=== PATIENT | male | born 1940 | race Caucasian/White ===

== ENCOUNTER 2017-07-24 06:34 | Day surgery (SDC) | payer MEDICARE ==
[~2017-07-24] VITALS: Ht 177.8 cm; Wt 107.0 kg
[~2017-07-24 06:34] MED LIST: ALBU90OI INH; ASPI325 PO; ASPI325EC; ATOR20 PO; Antivert25 MG PO; CARV3.125 PO; CHOL10002 PO; CHRO200 PO; Coreg12.5 MG PO; FURO40 PO; GLIP5 PO; HYDACE5; HYDR1TAB94 PO; Humalog100 UNIT/1 SC; Hydrocodone-Ap1 EA23; INSUASPI; INSULANI; INSULANI SC; INSULANPEN SC; ISOMON30; LISI5 PO; Lipitor20 MG PO; METF500 PO; METO100ER; OLME20 PO; ROSI4; ROSU10TA PO; SIMV20; SPIHYD; TIOT18 INH; TRAM50 PO; VITAMIN D35000 UNI1 PO
== END 2017-07-24 12:45 | disposition home or self-care (01) ==
LOC: MHTC 06:34
PROC: B213YZZ Fluoroscopy of Multiple Coronary Artery Bypass Grafts using Other Contrast (ICD-10-PCS; principal; 2017-07-24)
PROC: B211YZZ Fluoroscopy of Multiple Coronary Arteries using Other Contrast (ICD-10-PCS; principal; 2017-07-24)
DX: I25.118 Atherosclerotic heart disease of native coronary artery with other forms of angina pectoris (principal); E66.9 Obesity, unspecified; E78.00 Pure hypercholesterolemia, unspecified; I10 Essential (primary) hypertension; Z82.49 Family history of ischemic heart disease and other diseases of the circulatory system; E11.9 Type 2 diabetes mellitus without complications; Z79.4 Long term (current) use of insulin; E78.5 Hyperlipidemia, unspecified
CPT/HCPCS: 82947; 93455; 99152; 99153; C1769; C1894; J1644; J2250; J3010; J7030; Q9967

== ENCOUNTER 2017-08-02 06:24 | Day surgery (SDC) | payer MEDICARE ==
[~2017-08-02] VITALS: Ht 180.3 cm; Wt 109.3 kg
[2017-08-02] MEDS ORDERED: CLOP75 PO (13:32)
[2017-08-02] MEDS ORDERED: Lo-Dose Aspirin81 MG PO (13:33)
[2017-08-03 05:21] LABS: Bun/Creatinine Ratio 24.8 (12.0-20.0); Calcium, Blood 8.1 mg/dL (8.5-10.1); Creatinine, Blood 1.57 mg/dL (0.60-1.20); Potassium, Blood 5.1 mmol/L (3.5-5.5)
== END 2017-08-03 12:01 | disposition home or self-care (01) ==
LOC: MHTC 06:24 → PCU 11:48 → MHTC 08-03 12:01
PROVIDERS: Internal Medicine Interventional Cardiology
PROC: 027034Z Dilation of Coronary Artery, One Artery with Drug-eluting Intraluminal Device, Percutaneous Approach (ICD-10-PCS; principal; 2017-08-02)
PROC: B240ZZ3 Ultrasonography of Single Coronary Artery, Intravascular (ICD-10-PCS; principal; 2017-08-02)
DX: I25.10 Atherosclerotic heart disease of native coronary artery without angina pectoris (principal); I11.0 Hypertensive heart disease with heart failure; I50.1 Left ventricular failure, unspecified; E78.00 Pure hypercholesterolemia, unspecified; E11.9 Type 2 diabetes mellitus without complications; Z79.82 Long term (current) use of aspirin; Z79.4 Long term (current) use of insulin; Z79.84 Long term (current) use of oral hypoglycemic drugs; Z88.8 Allergy status to other drugs, medicaments and biological substances; Z95.1 Presence of aortocoronary bypass graft; Z86.73 Personal history of transient ischemic attack (TIA), and cerebral infarction without residual deficits; Z91.19 Patient's noncompliance with other medical treatment and regimen
CPT/HCPCS: 36415; 80048; 82947; 85347; 92978; 93005; 93010; 93455; 99152; 99153; C1725; C1753; C1769; C1874; C1887; C9600; J1644; J1815; J2250; J2720; J3010; J7030; Q9967

== ENCOUNTER 2018-12-26 09:23 | Emergency (ER) | payer MEDICARE ==
[~2018-12-26] VITALS: Ht 177.8 cm; Wt 90.7 kg
[~2018-12-26 09:23] MED LIST changes: +CLOP75 PO; +Lo-Dose Aspirin81 MG PO
[2018-12-26] MEDS ORDERED: CARV6.25 PO (09:42)
[2018-12-26] MEDS ORDERED: Aspirin EC81 MG (09:42)
[2018-12-26] MEDS ORDERED: ATOR20 PO (09:42)
[2018-12-26] MEDS ORDERED: FURO40 PO (09:43)
[2018-12-26] MEDS ORDERED: METF500 (09:43)
[2018-12-26] MEDS ORDERED: CLOP75 PO (09:43)
[2018-12-26] MEDS ORDERED: Norco 5-325 Ta1 EACH (09:44)
[2018-12-26] MEDS ORDERED: INSULANPEN (09:44)
[2018-12-26] MEDS ORDERED: TIOT18 INH (09:44)
[2018-12-26] MEDS ORDERED: Humalog100 UNIT/1 (09:44)
[2018-12-26 10:05] LABS: BASOPHILS ABSOLUTE AUTO 0.08 K/mm3 (0.00-0.23); BASOPHILS PERCENT AUTO 1 % (0-2); EOSINOPHILS ABSOLUTE AUTO 0.38 K/mm3 (0.00-0.68); EOSINOPHILS PERCENT AUTO 5 % (0-6); Hematocrit 37.7 % (37.0-53.0); Hemoglobin 11.5 g/dL (13.5-17.5); IMMATURE GRAN ABSOLUTE AUTO 0.05 K/mm3 (0.00-0.10); IMMATURE GRAN PERCENT AUTO 1 % (0-1); LYMPHOCYTES ABSOLUTE AUTO 1.61 K/mm3 (0.84-5.20); LYMPHOCYTES PERCENT AUTO 21 % (21-46); MONOCYTES ABSOLUTE AUTO 0.93 K/mm3 (0.16-1.47); MONOCYTES PERCENT AUTO 12 % (4-13); Mean Corpuscular HGB 28.5 pg (26.0-34.0); Mean Corpuscular HGB Conc 30.5 g/dL (31.5-36.5); Mean Corpuscular Volume 93 fL (80-100); Mean Platelet Volume 9.9 fL (9.1-12.4); NEUTROPHILS ABSOLUTE AUTO 4.65 K/mm3 (1.96-9.15); NEUTROPHILS PERCENT AUTO 61 % (41-73); Platelet Count 195 K/mm3 (150-400); RDW Coefficient Variation 14.3 % (11.7-14.2); RDW Standard Deviation 49.4 fL (35.1-46.3); Red Blood Cell Count 4.04 M/mm3 (4.30-5.90)
[2018-12-26 10:24] LABS: Alanine Aminotransfer (ALT/SGP 27 U/L (12-78); Albumin/Globulin Ratio 0.8 (0.8-1.8); Alk Phos 122 U/L (50-136); Anion Gap 6 mmol/L (6-16); Aspartate Aminotrans (AST/SGOT 25 U/L (12-37); Bilirubin, Total 0.5 mg/dL (0.1-1.0); Blood Urea Nitrogen 26 mg/dL (8-24); Bun/Creatinine Ratio 16.4 (12.0-20.0); CO2, Blood 24 mmol/L (21-32); Calcium, Blood 8.3 mg/dL (8.5-10.1); Chloride, Blood 110 mmol/L (98-108); Creatinine, Blood 1.59 mg/dL (0.60-1.20); Globulin, Blood 3.7 g/dL (2.2-4.0); Glomerular Filtration Rate 45 (60-); Glucose, Blood 170 mg/dL (70-99); Potassium, Blood 4.7 mmol/L (3.5-5.5); Sodium, Blood 140 mmol/L (136-145); Total Protein, Blood 6.7 g/dL (6.4-8.2); Troponin I <0.015 ng/mL (0.000-0.040)
[2018-12-26 10:42] LABS: Source, Urine Clean Catch
[2018-12-26 10:52] LABS: Bilirubin, Urine Neg (Neg); Blood, Urine Neg (Neg); Glucose Qualitative, Urine 2+ (Neg); Ketones, Urine Neg (Neg); Leukocyte Esterase, Urine Neg (Neg); Nitrite, Urine Neg (Neg); Protein, Urine Neg (Neg); Specific Gravity, Urine 1.005 (1.003-1.022); Urobilinogen, Urine NORM (Normal)
[2018-12-26 10:53] LABS: Appearance, Urine Clear (Clear); Color, Urine Yellow (P-Yellow)
== END 2018-12-26 12:35 | disposition home or self-care (01) ==
LOC: ER 09:23
PROVIDERS: Physician Assistant
DX: E86.0 Dehydration (principal); Z88.8 Allergy status to other drugs, medicaments and biological substances; Z79.899 Other long term (current) drug therapy; Z79.82 Long term (current) use of aspirin; Z79.4 Long term (current) use of insulin; I10 Essential (primary) hypertension; E78.5 Hyperlipidemia, unspecified; E11.9 Type 2 diabetes mellitus without complications
CPT/HCPCS: 36415; 70450; 71046; 80053; 81003; 84484; 85025; 93005; 93010; 99285-25

== ENCOUNTER 2020-08-07 18:42 | Emergency (ER) | payer MEDICARE ==
[~2020-08-07] VITALS: Ht 177.8 cm; Wt 102.1 kg
[~2020-08-07 18:42] MED LIST changes: +Aspirin EC81 MG; +CARV6.25 PO; +Humalog100 UNIT/1; +INSULANPEN; +METF500; +Norco 5-325 Ta1 EACH
== END 2020-08-07 20:42 | disposition home or self-care (01) ==
LOC: ER 18:42
DX: S46.911A Strain of unspecified muscle, fascia and tendon at shoulder and upper arm level, right arm, initial encounter (principal); S00.83XA Contusion of other part of head, initial encounter; I10 Essential (primary) hypertension; E78.5 Hyperlipidemia, unspecified; Z23 Encounter for immunization; Z88.8 Allergy status to other drugs, medicaments and biological substances; Z79.02 Long term (current) use of antithrombotics/antiplatelets; Z79.899 Other long term (current) drug therapy; Z79.4 Long term (current) use of insulin; W01.0XXA Fall on same level from slipping, tripping and stumbling without subsequent striking against object, initial encounter
CPT/HCPCS: 70450; 73030; 90471; 90714; 99284-25

== ENCOUNTER → 2020-08-13 | Outpatient (CLI) | payer MEDICARE ==
[2020-08-13 12:09] LABS: Microalbumin, Urine Quant. 13.4 mg/L (0.000-20.000)
== END | disposition home or self-care (01) ==
LOC: LAB SHORT 08:00 → PLD 08:00
PROVIDERS: Internal Medicine Nephrology
DX: N18.30 Chronic kidney disease, stage 3 unspecified (principal); D63.1 Anemia in chronic kidney disease; N25.81 Secondary hyperparathyroidism of renal origin; E55.9 Vitamin D deficiency, unspecified; E78.00 Pure hypercholesterolemia, unspecified; D51.8 Other vitamin B12 deficiency anemias; D52.8 Other folate deficiency anemias; D50.9 Iron deficiency anemia, unspecified; R76.9 Abnormal immunological finding in serum, unspecified; R94.5 Abnormal results of liver function studies; R94.6 Abnormal results of thyroid function studies
CPT/HCPCS: 81050; 82043; 84156; 84300

== ENCOUNTER → 2021-02-08 | Outpatient (CLI) | payer MEDICARE ==
[2021-02-08 10:36] LABS: BASOPHILS ABSOLUTE AUTO 0.05 K/mm3 (0.00-0.23); BASOPHILS PERCENT AUTO 1 % (0-2); EOSINOPHILS ABSOLUTE AUTO 0.27 K/mm3 (0.00-0.68); EOSINOPHILS PERCENT AUTO 4 % (0-6); Hemoglobin 12.6 g/dL (13.5-17.5); IMMATURE GRAN ABSOLUTE AUTO 0.06 K/mm3 (0.00-0.10); IMMATURE GRAN PERCENT AUTO 1 % (0-1); LYMPHOCYTES ABSOLUTE AUTO 1.24 K/mm3 (0.84-5.20); LYMPHOCYTES PERCENT AUTO 19 % (21-46); MONOCYTES ABSOLUTE AUTO 1.05 K/mm3 (0.16-1.47); MONOCYTES PERCENT AUTO 16 % (4-13); Mean Corpuscular HGB 27.2 pg (26.0-34.0); Mean Corpuscular HGB Conc 31.5 g/dL (31.5-36.5); Mean Corpuscular Volume 86 fL (80-100); Mean Platelet Volume 9.6 fL (9.1-12.4); NEUTROPHILS ABSOLUTE AUTO 3.82 K/mm3 (1.96-9.15); NEUTROPHILS PERCENT AUTO 59 % (41-73); Platelet Count 294 K/mm3 (150-400); RDW Coefficient Variation 14.6 % (11.7-14.2); RDW Standard Deviation 45.5 fL (35.1-46.3); Red Blood Cell Count 4.64 M/mm3 (4.30-5.90); White Blood Cell Count 6.49 K/mm3 (4.00-11.30)
[2021-02-08 10:42] LABS: Bun/Creatinine Ratio 23.8 (12.0-20.0); Calcium, Blood 9.5 mg/dL (8.5-10.1); Creatinine, Blood 2.14 mg/dL (0.60-1.20); Potassium, Blood 4.8 mmol/L (3.5-5.5)
== END | disposition home or self-care (01) ==
LOC: LAB SHORT 10:32 → PLD 10:32
PROVIDERS: Physician Assistant Surgical
DX: J18.9 Pneumonia, unspecified organism (principal)
CPT/HCPCS: 80048; 85025

== ENCOUNTER → 2021-07-12 | Outpatient (CLI) | payer MEDICARE | END | disposition home or self-care (01) | LOC: LAB SHORT 08:52 | DX: L03.011 Cellulitis of right finger (principal) | CPT/HCPCS: 87070; 87075; 87076; 87185; 87205 ==

== ENCOUNTER 2021-08-27 00:36 | Day surgery (SDC) | payer MEDICARE | END 2021-08-27 23:58 | disposition home or self-care (01) | LOC: WOUND 00:36 | DX: M86.141 Other acute osteomyelitis, right hand (principal); Z88.8 Allergy status to other drugs, medicaments and biological substances | CPT/HCPCS: G0463 ==

== ENCOUNTER 2021-09-28 01:41 | Day surgery (SDC) | payer MEDICARE | END 2021-09-28 23:02 | disposition home or self-care (01) | LOC: WOUND 01:41 | DX: M86.8X4 Other osteomyelitis, hand (principal); E11.622 Type 2 diabetes mellitus with other skin ulcer; L98.499 Non-pressure chronic ulcer of skin of other sites with unspecified severity; S61.20 Unspecified open wound of other finger without damage to nail | CPT/HCPCS: A9270; G0463 ==

== ENCOUNTER 2021-10-05 08:00 | Day surgery (SDC) | payer MEDICARE | END 2021-10-05 23:59 | disposition home or self-care (01) | LOC: WOUND 08:00 | DX: E11.69 Type 2 diabetes mellitus with other specified complication (principal); M86.8X4 Other osteomyelitis, hand; S61.204A Unspecified open wound of right ring finger without damage to nail, initial encounter | CPT/HCPCS: G0463 ==

== ENCOUNTER → 2022-09-15 | Outpatient (CLI) | payer MEDICARE ==
[~2022-09-15] MED LIST changes: +AZIT250 PO; +ELIQUIS2.5 MG PO; +ENTRESTO 24 MG1 EAC3 PO; +FURO20 PO; +GVOKE HYPO1 MG/0.21 SQ; +HUMALOG TE100 UNIT/1 SQ; +METO2.5 PO; +METO25ER PO; +PREGABALIN25 MG PO; +SYMBICORT 16010.2 GM IH
[2022-09-15 11:43] LABS: BASOPHILS ABSOLUTE AUTO 0.11 K/mm3 (0.00-0.23); BASOPHILS PERCENT AUTO 1 % (0-2); EOSINOPHILS ABSOLUTE AUTO 0.57 K/mm3 (0.00-0.68); EOSINOPHILS PERCENT AUTO 7 % (0-6); Hematocrit 37.5 % (37.0-53.0); Hemoglobin 11.8 g/dL (13.5-17.5); IMMATURE GRAN ABSOLUTE AUTO 0.03 K/mm3 (0.00-0.10); IMMATURE GRAN PERCENT AUTO 0 % (0-1); LYMPHOCYTES ABSOLUTE AUTO 1.97 K/mm3 (0.84-5.20); LYMPHOCYTES PERCENT AUTO 23 % (21-46); MONOCYTES ABSOLUTE AUTO 1.26 K/mm3 (0.16-1.47); MONOCYTES PERCENT AUTO 15 % (4-13); Mean Corpuscular HGB 27.8 pg (26.0-34.0); Mean Corpuscular HGB Conc 31.5 g/dL (31.5-36.5); Mean Corpuscular Volume 88 fL (80-100); Mean Platelet Volume 10.2 fL (9.1-12.4); NEUTROPHILS ABSOLUTE AUTO 4.67 K/mm3 (1.96-9.15); NEUTROPHILS PERCENT AUTO 54 % (41-73); Platelet Count 145 K/mm3 (150-400); RDW Coefficient Variation 15.3 % (11.7-14.2); RDW Standard Deviation 49.2 fL (35.1-46.3); Red Blood Cell Count 4.25 M/mm3 (4.30-5.90); White Blood Cell Count 8.61 K/mm3 (4.00-11.30)
[2022-09-15 11:55] LABS: Albumin, Blood 3.2 g/dL (3.4-5.0); Albumin/Globulin Ratio 0.7 (0.8-1.8); Bilirubin, Total 0.4 mg/dL (0.1-1.0); Bun/Creatinine Ratio 30.2 (12.0-20.0); Calcium, Blood 8.9 mg/dL (8.5-10.1); Creatinine, Blood 2.12 mg/dL (0.60-1.20); Globulin, Blood 4.5 g/dL (2.2-4.0); Potassium, Blood 5.9 mmol/L (3.5-5.5); Total Protein, Blood 7.7 g/dL (6.4-8.2)
== END | disposition home or self-care (01) ==
LOC: LAB 11:38 → LAB SHORT 11:38
PROVIDERS: Chiropractor
DX: R06.09 Other forms of dyspnea (principal); R60.0 Localized edema
CPT/HCPCS: 80053; 83880; 84484; 85025; 85379

== ENCOUNTER 2023-03-06 10:20 | Emergency (ER) | payer MEDICARE ==
[~2023-03-06] VITALS: Ht 177.8 cm; Wt 102.1 kg
[2023-03-06 10:33] VITALS: BP 149/80
[2023-03-06] MEDS ORDERED: Valium5 MG PO (11:14)
[2023-03-06] MEDS ORDERED: Roxicodone5 MG PO (11:14)
== END 2023-03-06 11:30 | disposition home or self-care (01) ==
LOC: ER 10:20
DX: G89.29 Other chronic pain (principal); M25.551 Pain in right hip; I11.0 Hypertensive heart disease with heart failure; I50.9 Heart failure, unspecified; E11.9 Type 2 diabetes mellitus without complications; E78.5 Hyperlipidemia, unspecified; J44.9 Chronic obstructive pulmonary disease, unspecified; Z88.8 Allergy status to other drugs, medicaments and biological substances; Z79.01 Long term (current) use of anticoagulants; Z79.4 Long term (current) use of insulin; Z79.899 Other long term (current) drug therapy
CPT/HCPCS: 96372; 99282-25; J1170; J3360

== ENCOUNTER → 2023-07-13 | Outpatient (CLI) | payer MEDICARE ==
[~2023-07-13] MED LIST changes: +Roxicodone5 MG PO; +Valium5 MG PO
== END ==
LOC: LAB SHORT 17:36 → LAB 17:36
DX: L02.611 Cutaneous abscess of right foot (principal)
CPT/HCPCS: 87070; 87205

== ENCOUNTER → 2023-07-13 | Outpatient (CLI) | payer MEDICARE | LOC: LAB 07:58 → LAB SHORT 07:58 | DX: M10.9 Gout, unspecified (principal) | CPT/HCPCS: 88305; 89060 ==

== ENCOUNTER → 2023-09-29 | Outpatient (CLI) | payer MEDICARE ==
[~2023-09-29] MED LIST changes: +Robaxin750 MG PO
[2023-10-03 20:19] LABS: 6-ACETYLMORPHINE, URN, QUANT <10 ng/mL; CODEINE, URN, QUANT <20 ng/mL; HYDROCODONE, URN, QUANT <20 ng/mL; HYDROMORPHONE, URN, QUANT <20 ng/mL; MORPHINE, URN, QUANT <20 ng/mL; NORHYDROCODONE, URN, QUANT <20 ng/mL; NOROXYCODONE, URN, QUANT 759 ng/mL; NOROXYMORPHONE, URN, QUANT 125 ng/mL; OXYCODONE, URN, QUANT 367 ng/mL; OXYMORPHONE, URN, QUANT <20 ng/mL
== END ==
LOC: LAB 15:07 → LAB SHORT 15:07
PROVIDERS: Family Medicine
DX: Z51.81 Encounter for therapeutic drug level monitoring (principal); Z79.899 Other long term (current) drug therapy
CPT/HCPCS: G0480